=== PATIENT | male | born 1965 | race Caucasian/White ===

== ENCOUNTER 2019-01-14 02:35 | Emergency (ER) | payer SELFPAY ==
[~2019-01-14] VITALS: Ht 180.3 cm; Wt 68.0 kg
[2019-01-14 02:40] VITALS: BP 102/70
--- NOTE | 2019-01-14 02:40 | NUR ---
ED Nurse Note: Patient brought in by transport ambulance. Patient states he has has a history of back pain for the past one year. Denies any urinary symptomolgy or constipation. Denies pain radiation to legs. Describes no new trauma. Denies any old trauma. He is unsure why his back hurts or why he gets pain. No new symptomology the pain has been present for a year and the pain moves in his back it is not always in the same spot. Patient is able to ambulate with steady gait.
[2019-01-14] MEDS ORDERED: IBUPROFEN600 MG ORAL (02:58)
--- NOTE | 2019-01-14 02:58 | Emergency Room Report ---
History of Present Illness General Chief Complaint: Pain Source: Patient Present Illness HPI This is a 53-year-old male who came in with chief complaint of back pain. This been ongoing for years. He is a vague historian. Denies any nausea vomiting. No incontinence of bowel or urine. History is limited because of his intoxication. He said he was just at [facility] a couple days ago for the same thing. No other complaint. Allergies: Coded Allergies: No Known Allergies (Unverified , 01/14/19) Patient History Past Medical History: see triage record, old chart reviewed Past Surgical History: none Pertinent Family History: none Social History: Denies: smoking Immunizations: other Reviewed Nursing Documentation: PMH: Agreed; PSxH: Agreed Nursing Documentation-PMH History Of Psychiatric Problem: Yes Review of Systems Eye: Denies: eye pain, blurred vision ENT: Denies: ear pain, nose congestion, throat swelling Respiratory: Denies: cough, shortness of breath Cardiovascular: Denies: chest pain, palpitations Gastrointestinal: Denies: abdominal pain, diarrhea, nausea, vomiting Musculoskeletal: Reports: back pain; Denies: joint pain Skin: Denies: rash Neurological: Denies: headache, numbness Endocrine: Denies: increased thirst, increased urine Hematologic/Lymphatic: Denies: easy bruising All Other Systems: negative except mentioned in HPI Physical Exam Vital Signs Date Time Temp Pulse Resp B/P (MAP) Pulse Ox O2 Delivery O2 Flow Rate FiO2 01/14/19 02:37 98.2 90 18 96/70 (79) 95 Room Air Vitals unremarkable Sp02 EP Interpretation: reviewed, normal General Appearance: well appearing, no apparent distress, alert Head: normocephalic, atraumatic Eyes: bilateral eye PERRL, bilateral eye EOMI ENT: hearing grossly normal, normal pharynx Neck: full range of motion, supple, no meningismus Respiratory: chest non-tender, lungs clear, normal breath sounds Cardiovascular #1: regular rate, rhythm, no murmur Gastrointestinal: normal bowel sounds, non tender, no mass, no organomegaly, no bruit, non-distended Musculoskeletal: back normal, gait/station normal, normal range of motion Psychiatric: mood/affect normal Medical Decision Making Diagnostic Impression: Primary Impression: Low back pain Qualified Codes: M54.5 - Low back pain ER Course This patient presents with low back pain. He has no fever or trauma. No evidence of cauda equina syndrome, spinal epidural abscess or neoplastic process. Will discharge home. Last Vital Signs Date Time Temp Pulse Resp B/P (MAP) Pulse Ox O2 Delivery O2 Flow Rate FiO2 01/14/19 02:37 98.2 90 18 96/70 (79) 95 Room Air Status: improved Disposition: HOME, SELF-CARE Condition: Stable Scripts Ibuprofen* (MOTRIN*) 600 Mg Tablet 600 MG ORAL THREE TIMES A DAY, #30 TAB 0 Refills Prov: Dave Kwong MD 01/14/19 Referrals: NOT CHOSEN [facility]/,REFERRING (PCP) Additional Instructions: Follow-up with your doctor in 7 days. Return if symptoms worsen. Dave Kwong MD Jan 14, 2019 02:58
--- NOTE | 2019-01-14 03:08 | NUR ---
ER DISCHARGE NOTE: Patient is cleared to be discharged per ERMD, pt is aox4, on room air, with stable vital signs. pt was given dc and prescription instructions, pt was able to verbalize understanding, pt id band removed. pt is able to ambulate with steady gait. pt took all belongings. Patient refused offer of food and stated he did not require assistance to get to a location. No end location provided. Clothing appropriate for the weather.
== END 2019-01-14 03:08 | disposition home or self-care (01) ==
LOC: EDBD 02:35 → EMR 02:50
DX: M54.5 Low back pain (principal)
CPT/HCPCS: 99282